=== PATIENT | male | born 1970 | race Caucasian/White ===

== ENCOUNTER → 2017-01-18 | Outpatient (CLI) | payer BC | END | disposition home or self-care (01) | LOC: GMAJ 10:18 | PROVIDERS: ATTEND Family Medicine | DX: Z12.5 Encounter for screening for malignant neoplasm of prostate (principal); M10.9 Gout, unspecified ==

== ENCOUNTER → 2017-01-19 | Outpatient (CLI) | payer BC | LOC: GMAH 16:37 | PROVIDERS: ATTEND Family Medicine | DX: E66.01 Morbid (severe) obesity due to excess calories (principal) ==

== ENCOUNTER 2018-05-29 07:54 | Emergency (ER) | payer BC ==
--- NOTE | 2018-05-29 08:20 | ED.PDOC ---
History of Present Illness - General Chief Complaint: ENT Problem Stated Complaint: right ear pain Time Seen by Provider: 05/29/18 08:00 Source: patient Exam Limitations: no limitations - History of Present Illness Initial Comments: Quang Mike 47 y/o male came to er with right ear pain for the last 2 days seen by primary md was given antibiotics but not better.Stated ears seems like had been shut.No fever no ringing in ears,no vertigo. Timing/Duration: gradual Severity: moderate EENT Location: ear (R) Prearrival Treatment: prescription meds Presenting Symptoms: right ear pain Improving Factors: nothing Worsening Factors: nothing Associated Symptoms: nasal congestion/drainage Allergies/Adverse Reactions: Allergies Penicillins Allergy (Mild, Verified 05/29/18 08:09) Home Medications: Ambulatory Orders Acetamin W/Cod #3 Tab [Tylenol w/CODEINE #3] 1 ea PO Q4HR PRN #14 tab 05/29/18 Review of Systems - Review of Systems Constitutional: States: no symptoms reported EENTM: States: see HPI Respiratory: States: no symptoms reported Cardiology: States: no symptoms reported Gastrointestinal/Abdominal: States: no symptoms reported Genitourinary: States: no symptoms reported Musculoskeletal: States: no symptoms reported Skin: States: no symptoms reported Neurological: States: no symptoms reported Past Medical History (General) - Patient Medical History Hx Hypertension: Yes Surgical History: no surgical history - Vaccination History Hx Tetanus, Diphtheria Vaccination: No - Social History Hx Alcohol Use: No Hx Substance Use: No Hx Physical Abuse: No Hx Emotional Abuse: No - Activities of Daily Living Grooming Ability: Independent Eating (Feeding) Ability: Independent Toileting Ability: Independent Family Medical History - Family History Father Family History: No Known Mother Family History: Unknown Physical Exam - Physical Exam General Appearance: Alert, Comfortable, No apparent distress, Other - tenderness exteding right parotid gland area no vesicular rashes noted on skin Eye Exam: bilateral normal Ear Exam: right ear: erythema, other - swoollen right ear canal Nasal Exam: other - nasal congestion right>left Throat Exam: normal mouth inspection, pharynx normal Neck: non-tender, full range of motion, supple, normal inspection, trachea midline Cardiovascular/Respiratory: regular rate, rhythm, no M/R/G, normal peripheral pulses Abdominal Exam: non-tender, no organomegaly Neurologic: no motor/sensory deficits, alert, oriented x 3 Skin Exam: normal color, warm/dry Progress - Progress Progress: 05/29/18 08:50 Vital Signs - 24 hr 05/29/18 07:55 Temperature 98.6 F Pulse Rate [ 98 H Apical] Respiratory 16 Rate Blood Pressure 144/106 [Left Arm] O2 Sat by Pulse 94 L Oximetry EAR WICK INSERTED RIGHT EAR CANAL AFTER PUTTING CORTICOSPORIN EAR DROPS.Dr. Cleveland called up and suggested to get cbc,and facial ct. Departure - Departure Clinical Impression: Mastoiditis of right side Otitis externa Qualifiers: Otitis externa type: diffuse Chronicity: acute Laterality: right Qualified Code (s): H60.311 - Diffuse otitis externa, right ear Otitis media Qualifiers: Otitis media type: unspecified Chronicity: acute Qualified Code(s): H66.90 - Otitis media, unspecified, unspecified ear Time of Disposition: 10:51 Disposition: Discharge to Home or Self Care Departure Forms: ED Discharge - Pt. Copy, Patient Portal Self Enrollment Instructions: DI for Otitis Externa, Ear Infections (Otitis Media) (DC), Mastoiditis (DC), Mastoiditis Referrals: Chilo Cleveland MD [Primary Care Provider] - 1-2 Weeks Prescriptions: Acetamin W/Cod #3 Tab [Tylenol w/CODEINE #3] 1 ea PO Q4HR PRN #14 tab PRN Reason: Pain Home Medications: Ambulatory Orders Acetamin W/Cod #3 Tab [Tylenol w/CODEINE #3] 1 ea PO Q4HR PRN #14 tab 05/29/18 Additional Instructions: Keep appointment with ENT specialist today at 1345 H;Return to ER as needed
[2018-05-29 08:21] VITALS: TEMP 98.6
[2018-05-29] MEDS ORDERED: KETOROLAC TROMETHAMINE INJ 30 MG/ML VIAL IM ONE (08:23)
[2018-05-29] MEDS ORDERED: MORPHINE SULFATE INJ 10 MG/ML VIAL IM ONE (08:23)
[2018-05-29] MEDS ORDERED: HYDROcodone 10MG/APAP 325MG 1 EA TAB PO ONE (08:23)
[2018-05-29] MEDS ORDERED: NEO/POLY/HC OTIC SUSP 10 ML BTTL RIGHT_EAR ONE (08:24)
--- NOTE | 2018-05-29 10:44 | CT ---
EXAM DESCRIPTION: Soft Tissue Neck w/Contrast CLINICAL HISTORY: 47 years, Male, right ear pain,ear canal swelling COMPARISON: None. TECHNIQUE: CT of the neck is performed during IV administration of standard adult dose of nonionic contrast. MPR images are created and reviewed as well. FINDINGS: Thickening of the skin of the external auditory canal on the right is seen with fluid in the lumen. Small amount of fluid is seen in the right tympanic cavity. There is fluid in the mastoid air cells. Fluid in the right eustachian tube is seen. No defect of the bone to suggest a CSF leak. This is most likely infectious external otitis and otitis media with mild mastoiditis. ENT consultation is recommended. Symmetrical internal auditory canals. Symmetrical appearance of the inner ear structures. Fluid level in the left maxillary sinus is seen with nodular mucosal thickening. Mucous tension cyst in the anterior left maxillary sinus measures 1.8 cm. Coronal and sagittal reformatted images confirm the findings. Prominent number of small lymph nodes in the right neck are likely reactive. The lower portions of the brain are unremarkable. Normal orbital contents. IMPRESSION: Fluid in the right outer ear, middle ear and mastoid air cells suggesting external otitis and otitis media with early mastoiditis. ENT consultation is recommended. Left maxillary sinusitis. This exam was performed according to our departmental dose-optimization program, which includes automated exposure control, adjustment of the mA and/or kV according to patient size and/or use of iterative reconstruction technique. Total DLP dose 339.75 mGycm. Electronically signed by: Luis Gutierres MD 05/29/2018 10:43 AM CDT
[2018-05-29 11:05] VITALS: BP 134/91; O2SAT 96
== END 2018-05-29 11:05 | disposition home or self-care (01) ==
LOC: ER 07:54
DX: H60.311 Diffuse otitis externa, right ear (principal); H66.91 Otitis media, unspecified, right ear; H70.91 Unspecified mastoiditis, right ear; I10 Essential (primary) hypertension; Z88.0 Allergy status to penicillin
CPT/HCPCS: 36415; 70491; 80048; 82150; 85025; J1885; J2270

== ENCOUNTER → 2019-08-27 | Outpatient (CLI) | payer BC | LOC: GMAJ 10:45 | PROVIDERS: ATTEND Family Medicine | DX: M10.9 Gout, unspecified (principal) ==

== ENCOUNTER → 2020-06-25 | Outpatient (CLI) | payer OTHER | LOC: GMAJ 10:25 | PROVIDERS: ATTEND Family Medicine | DX: M10.00 Idiopathic gout, unspecified site (principal); E11.9 Type 2 diabetes mellitus without complications; E78.2 Mixed hyperlipidemia; I10 Essential (primary) hypertension ==

== ENCOUNTER 2020-07-13 05:05 | Day surgery (SDC) | payer OTHER ==
[2020-07-13] MEDS ORDERED: BUPIVACAINE 0.5% 30 ML VIAL INJ ONE ×2 (10:15)
[2020-07-13] MEDS ORDERED: LIDOCAINE 1% 10 ML VIAL INJ ONE (10:15)
[2020-07-13] MEDS ORDERED: BETAMETHASONE ACETATE/BETAMETH 6 MG/ML VIAL IM ONE (10:15)
== END 2020-07-13 10:30 | disposition home or self-care (01) ==
LOC: AMB 05:05
PROVIDERS: ATTEND Family Medicine Sports Medicine
DX: M46.1 Sacroiliitis, not elsewhere classified (principal); E11.9 Type 2 diabetes mellitus without complications; E78.5 Hyperlipidemia, unspecified; K21.9 Gastro-esophageal reflux disease without esophagitis; M10.9 Gout, unspecified; Z88.0 Allergy status to penicillin; Z79.84 Long term (current) use of oral hypoglycemic drugs; Z79.899 Other long term (current) drug therapy
CPT/HCPCS: 36416; 76000; 82948; G0260

== ENCOUNTER → 2020-10-28 | Outpatient (CLI) | payer OTHER | LOC: GMAJ 12:06 | PROVIDERS: ATTEND Family Medicine | DX: Z12.5 Encounter for screening for malignant neoplasm of prostate (principal) ==